=== PATIENT | female | born 1995 | race Caucasian/White ===

== ENCOUNTER 2018-03-19 05:57 | Inpatient (IN) | payer BC, OTHER ==
[2018-03-19 07:03] LABS: APPEARANCE,URINE TURBID; BILIRUBIN,URINE NEGATIVE (NEGATIVE); COLOR,URINE YELLOW; GLUCOSE, URINE NEGATIVE (NEGATIVE); KETONES,URINE NEGATIVE (NEGATIVE); LEUKOCYTE ESTERASE,URINE TRACE (NEGATIVE); NITRITE,URINE NEGATIVE (NEGATIVE); PROTEIN,URINE 100 mg/dL (NEGATIVE); URINE SPECIFIC GRAVITY 1.005; UROBILINOGEN,URINE NEGATIVE mg/dL (<2.0)
[2018-03-19 07:05] LABS: URINE AMPHETAMINES SCREEN NEGATIVE; URINE BARBITURATES SCREEN NEGATIVE; URINE BENZODIAZEPINES SCREEN NEGATIVE; URINE COCAINE SCREEN NEGATIVE; URINE MARIJUANA (THC) SCREEN NEGATIVE; URINE METHADONE SCREEN NEGATIVE; URINE PHENCYCLIDINE SCREEN NEGATIVE
--- NOTE | 2018-03-19 07:19 | Admission Physical ---
Datetime Report Generated by CPN: 03/19/2018 07:19 CURRENT ADMISSION Chief Complaint: Suspected Ruptured Membranes Indication for Induction: Not Applicable Admit Impression : Term, Intrauterine ; No Active Labor; Ruptured Membranes Admit Plan: Admit to Unit; Initiate Labor Protocol ALLERGIES Medication Allergies: No Medication Allergies: No Known Allergies (03/19/2018) Latex: No Latex Allergies Food Allergies: NKA Environmental Allergies: NKA OBSTETRICAL HISTORY EDC: 03/20/2018 00:00 : 2 Para: 0 Term: 0 : 0 SAB: 1 IAB: 0 Livin Cesareans: 0 Gestational Diabetes: No Rh Sensitization: No Incompetent Cervix: No PATRICIA: No Infertility: No Uterine Anomaly: No IUGR: No Hx Previous C/S: No Macrosomia: No Hx Loss/Stillborn: No PIH: No Hx : No Placenta Previa/Abruption: No Depression/PP Depression: No PTL/PROM: No Post Hemorrhage: No SEE RECORDS Alcohol: Yes Marijuana : Yes Cocaine: Yes Other Illicit Drugs: Yes Cigarettes: Never Smoker. [id number] PHYSICAL EXAM General: Normal HEENT: Normal Neurologic: Normal Thyroid: Normal Heart: Normal Lungs: Normal Breast: Normal Back: Normal Abdomen: Normal Genitourinary Exam: Normal Extremities: Normal DTRs: Normal Pelvic Type: Adequate Vital Signs: Reviewed; Within Normal Limits VAGINAL EXAM Dilatation: ft Effacement: 50 Station: -3 Contraction Comments: q 6 minutes MEMBRANES Pooling: Negative Ferning Results: Positive Membranes: Ruptured Amniotic Fluid Color: Clear FETUS A EGA: 39.6 Monitoring: External US; Internal Scalp Electrode FHR- Baseline: 120s Variability: Moderate 6-25bpm Accelerations: 15X15 Decelerations: None FHR Category: Category I Admit Comment: GBS Negative. Pt comfortable. PLANS FOR LABOR AND DELIVERY Labor and Delivery: None Pain Management: Epidural Feeding Preference: Breast Benefit of Breast Feed Discussed: Yes Circumcision: Yes INFORMED CONSENT Signature: with User ID: [email or web address]
[2018-03-19] MEDS ORDERED: OXYTOCIN 10 UNIT/ML VIAL ONE (08:07)
[2018-03-19] MEDS ORDERED: LIDOCAINE 1% INJ-PF (10 MG/ML) 30 ML SDV ONE (08:08)
[2018-03-19] MEDS ORDERED: MISOPROSTOL 0.2 MG TABLET ONE (08:08)
[2018-03-19] MEDS ORDERED: OXYTOCIN/NORMAL SALINE 20 UNIT/1,000 ML RTUINJ ONE (08:08)
[2018-03-19] MEDS ORDERED: NALBUPHINE HCL INJ 10 MG/1 ML AMPULE INJ ONE (11:04)
[2018-03-19] MEDS ORDERED: PROMETHAZINE HCL INJ 25 MG/1 ML VIAL IV ONE (11:04)
[2018-03-19] MEDS ORDERED: NALBUPHINE HCL INJ 10 MG/1 ML AMPULE ONE (11:07)
[2018-03-19] MEDS ORDERED: PROMETHAZINE HCL INJ 25 MG/1 ML VIAL ONE (11:07)
[2018-03-19] MEDS ORDERED: RINGERS SOLUTION,LACTATED 1,000 ML IV PRN (11:47)
[2018-03-19] MEDS ORDERED: RINGERS SOLUTION,LACTATED 300 ML IV ONE (11:47)
--- NOTE | 2018-03-19 11:58 | L&D Progress Notes ---
PROGRESS NOTES Datetime Report Generated by CPN: 03/19/2018 11:58 PROGRESS NOTE Impression: Normal Progression of Labor; Reassuring Heart Rate Procedures: Sterile Vag Exam Plan: Continue Present Management; Anticipate Vaginal Delivery Informed Consent Obtained: Vaginal Delivery Vital Signs : Reviewed; Within Normal Limits Comment: Pt s/p IV pain medication, very uncomfortable, c/o rectal pressure. VE small Ant Lip/ -1. Position changes encouaraged. Anticipate soon. Attending MD is Dr Alba VAGINAL EXAM Dilatation: anterior lip Dilatation: ft Effacement: 90 Effacement: 50 Station: -1 Station: -3 Contractions: q1-3 Contractions: q 6 minutes LAST VAGINAL EXAM-NURSING Dilitation: 9.5 Dilitation: FT Effacement: 90 Effacement: 60 Station: -1 Station: -3 MEMBRANES Pooling: Negative Ferning Results: Positive Membranes: Ruptured Amniotic Fluid Color: Clear FETUS A FHR - Baseline: 130 Monitoring: External US Variability: Moderate 6-25bpm Accelerations: 10X10 Decelerations: Variable FHR Category: Category II : 39.6 SIGNATURE SIGNATURE: [id number] SIGNATURE: [id number] Assignment: Steve Alba MD Signature: with User ID: [email or web address] : with User ID: [email or web address]
[2018-03-19 12:42] LABS: ABSOLUTE LYMPHOCYTES (AUTO) 1.9 10^3/uL (0.5-4.7); ABSOLUTE MONOCYTES (AUTO) 0.6 10^3/uL (0.1-1.4); BASOPHILS % (AUTO) 0.3 % (0-2); EOSINOPHILS % (AUTO) 0.1 % (0-6); HEMATOCRIT 35.6 % (36.0-47.0); HEMOGLOBIN 12.2 g/dL (12.0-15.5); LYMPHOCYTES % (AUTO) 14.8 % (13-45); MEAN CORPUSCULAR HEMOGLOBIN 31.4 pg (27.0-33.4); MEAN CORPUSCULAR HGB CONC 34.3 g/dL (32.0-36.0); MEAN CORPUSCULAR VOLUME 92 fl (80-97); MONOCYTES % (AUTO) 5.1 % (3-13); PLATELET COUNT 214 10^3/uL (150-450); RED BLOOD COUNT 3.89 10^6/uL (3.72-5.28); RED CELL DISTRIBUTION WIDTH 13.5 % (11.5-14.0); SEGMENTED NEUTROPHILS % (AUTO) 79.7 % (42-78); TOTAL CELLS COUNTED % (AUTO) 100 %; WHITE BLOOD COUNT 12.5 10^3/uL (4.0-10.5)
[2018-03-19] MEDS ORDERED: DIPH/PERTUSS(ACELL)/TETANUS VAC/PF 0.5 ML SYR (>=10YO) IM PRN (13:51)
[2018-03-19] MEDS ORDERED: ZOLPIDEM TARTRATE 5 MG TABLET PO PRN (13:51)
[2018-03-19] MEDS ORDERED: MEASLES,MUMPS&RUBELLA VACC/PF 0.5 ML VIAL SUBCUT PRN (13:51)
[2018-03-19] MEDS ORDERED: OXYTOCIN/NORMAL SALINE 20 UNIT/1,000 ML RTUINJ IV PRN (13:51)
[2018-03-19] MEDS ORDERED: BENZOCAINE/MENTHOL AEROSOL SPRAY 56 ML TOP PRN (13:51)
[2018-03-19] MEDS ORDERED: ACETAMINOPHEN WITH CODEINE #3 TABLET PO PRN (13:51)
[2018-03-19] MEDS ORDERED: DIBUCAINE 1% OINTMENT 28 GM TP PRN (13:51)
[2018-03-19] MEDS ORDERED: IBUPROFEN 800 MG TABLET ONE (14:28)
[2018-03-19] MEDS: FERROUS SULFATE 325 MG TABLET PO SCH (17:38)
[2018-03-19] MEDS: DOCUSATE SODIUM 100 MG CAPSULE PO SCH (17:38)
--- NOTE | 2018-03-19 17:39 | Delivery Summary ---
Del Sum A-C Datetime Report Generated by CPN: 03/19/2018 17:39 DELIVERY PERSONNEL DELIVERY PERSONNEL: [id number] Delivery Doctor:: Huma Rosenthal CNM Labor and Delivery Nurse:: Hiwot Bryant RN Nursery Nurse:: Samantha Scott RN [employer] Visiting Teacher/SUPERVISOR GRINDING: Radha Soliman CNA II MATERNAL INFORMATION Delivery Anesthesia: Local Medications After Delivery: Pitocin Bolus-Please Comment; Pitocin Drip 20 Units/1000ml NSS; Other-Please Comment Meds After Delivery Comment: CYTOTEC 200 MCG SL @ 1317 Maternal Complications: None Provider Comments: of viable baby boy, TATO. NC x 1, easily reduced. Baby placed on pts abdoman, crying and in stable condition. Cord Clamped and cut after one minute. Cord blood obtained. Placenta S/C/I, IV Pitocin infusing. Cytotec 200 mcg SL given. Hemostasis achieved. 2nd degree laceration repaired. Mother and baby stable and skin to skin, Pt plans to breastfeed. EBL [address] Alba is the attending MD LABOR SUMMARY EDC: 03/20/2018 00:00 No. Babies in Womb: 1 Attempted: No Labor Anesthesia: IV Sedation LABOR INFORMATION Reason for Induction: Not Applicable Onset of Labor: 03/19/2018 09:30 Complete Dilatation: 03/19/2018 11:57 Oxytocin: Augmentation Group B Beta Strep: Negative Antibiotics # of Doses: 0 Steroids Given: None Reason Steroids Not Administered: Not Applicable MEMBRANES Membranes Rupture Method: Spontaneous Rupture of Membranes: 03/19/2018 02:15 Length of Rupture (hr): 10.97 Amniotic Fluid Color: Clear Amniotic Fluid Amount: Moderate Amniotic Fluid Odor: None STAGES OF LABOR Stage 1 hr: 2 Stage 1 min: 27 Stage 2 hr: 1 Stage 2 min: 16 Stage 3 hr: 0 Stage 3 min: 4 Total Time in Labor hr: 3 Total Time in Labor min: 47 VAGINAL DELIVERY Episiotomy: None Laceration #1: Perineal Laceration Extension #1: Second Degree Laceration Repair: Yes Laceration Repair Note: 2nd degree laceration repaired w/ 3.0 Vicryl using local lidocaine injection Sponge Count Correct: N/A Sharps Count Correct: N/A BABY A INFORMATION Delivery Date/Time: 03/19/2018 13:13 Method of Delivery: Vaginal Born in Route : No : N/A Forceps: N/A Vacuum Extraction: N/A Shoulder Dystocia : No PRESENTATION/POSITION BABY A Presentation: Cephalic Cephalic Presentation: Vertex Vertex Position: Left Occipital Anterior Breech Presentation: N/A PLACENTA INFORMATION BABY A Placenta Delivery Time : 03/19/2018 13:17 Placenta Method of Delivery: Spontaneous Placenta Status: Delivered SCORES BABY A Heart Rate 1 min: >100 bpm Resp Effort 1 min: Good Cry Reflex Irritability 1 min: Cough or Sneeze or Pulls Away Muscle Tone 1 min: Active Motion Color 1 min: Blue/Pale Resuscitation Effort 1 min: Tactile Stimulation SCORE 1 MIN: 8 Heart Rate 5 min: >100 bpm Resp Effort 5 min: Good Cry Reflex Irritability 5 min: Cough or Sneeze or Pulls Away Muscle Tone 5 min: Active Motion Color 5 min: Body [place], Extremities Blue Resuscitation Effort 5 min: Tactile Stimulation SCORE 5 MIN: 9 INFORMATION BABY A Gestational Age at Delivery: 39.6 Gestational Status: Full Term- 39- 40.6 Weeks Outcome : Liveborn Infant Condition : Stable Infant Sex: Male IDENTIFICATION BABY A Infant Verification Date/Time: 03/19/2018 14:38 ID Band Number: [id number] Mother's Name Verified: Yes Infant RN Verifying Infant: OSBALDO JOHNSONTANIYA, [place] Additional Verifying Personnel: Frank CATALAN RN WEIGHT/LENGTH BABY A Birthweight (gm): 3512 Infant Weight (lb): 7 Weight (oz): 12 Infant Length (in): 21.00 Infant Length (cm): 53.34 CORD INFORMATION BABY A No. Cord Vessels: 3 Nuchal Cord : Around Neck x1, Loose Cord Blood Taken: Yes-For Storage (Mom's Blood type +) (Annotations: Data stored by [facility] on behalf of user) Suction: None ASSESSMENT BABY A Infant Complications: Multiple Variable Decels Physical Findings at Delivery: Caput Succedaneum; Molding of the Head Respirations: Appears Normal Skin to Skin: Yes Sack Lifter/ALS Called : No Care By: Clara SCOTT RN/ OSBALDO BRYANT RN Transferred To: Remains with Mother BABY B INFORMATION : N/A SIGNATURES Assignment: Steve Alba MD Signature: with User ID: [email or web address] : with User ID: [email or web address]
[2018-03-19] MEDS: IBUPROFEN 800 MG TABLET PO SCH ×2 (17:54→22:25)
[2018-03-20] MEDS: IBUPROFEN 800 MG TABLET PO SCH ×3 (05:44→22:34)
[2018-03-20 08:38] LABS: HEMATOCRIT 27.6 % (36.0-47.0); MEAN CORPUSCULAR HEMOGLOBIN 31.5 pg (27.0-33.4); MEAN CORPUSCULAR HGB CONC 33.9 g/dL (32.0-36.0); MEAN CORPUSCULAR VOLUME 93 fl (80-97); PLATELET COUNT 174 10^3/uL (150-450); RED BLOOD COUNT 2.97 10^6/uL (3.72-5.28); WHITE BLOOD COUNT 11.4 10^3/uL (4.0-10.5)
[2018-03-20 08:39] LABS: HEMOGLOBIN 9.4 g/dL (12.0-15.5)
--- NOTE | 2018-03-20 08:54 | PDOC PROGRESS REPORT ---
Subjective-OB Progress Note for:: 03/20/18 Subjective: Doing well, no c/o, voiding Physical Exam (OB) Vital Signs: Temp Pulse Resp BP Pulse Ox 97.5 F 75 16 121/62 96 03/20/18 07:49 03/20/18 07:49 03/20/18 07:49 03/20/18 07:49 03/20/18 07:49 Intake & Output 03/19/18 03/20/18 03/21/18 06:59 06:59 06:59 Weight 79.435 kg - PIH/Pre-Eclampsia Headache: Absent Epigastric Pain: No Visual Changes: No - Lochia Lochia Amount: Small 10-25 ml Lochia Color: Rubra/Red - Abdomen Description: Soft, Round Hernia Present: No Fundal Description: Firm, Midline Fundal Height: u/u - u/2 Objective-Diagnostic Laboratory: 03/20/18 07:45 03/19/18 03/19/18 03/20/18 12:29 12:29 07:45 WBC 12.5 H 11.4 H RBC 3.89 2.97 L Hgb 12.2 9.4 L D Hct 35.6 L 27.6 L MCV 92 93 MCH 31.4 31.5 MCHC 34.3 33.9 RDW 13.5 14.0 Plt Count 214 174 Seg Neutrophils % 79.7 H Lymphocytes % 14.8 Monocytes % 5.1 Eosinophils % 0.1 Basophils % 0.3 Absolute Neutrophils 10.0 H Absolute Lymphocytes 1.9 Absolute Monocytes 0.6 Absolute Eosinophils 0.0 Absolute Basophils 0.0 Blood Type A POSITIVE Antibody Screen NEGATIVE Assessment and Plan(PN) - Assessment and Plan (1) Normal vaginal delivery Is this a current diagnosis for this admission?: Yes (2) Anemia Qualifiers: Anemia type: iron deficiency Is this a current diagnosis for this admission?: Yes - Time Spent with Patient Time with patient: Less than 15 minutes Medications reviewed and adjusted accordingly: Yes - Disposition Anticipated Discharge: Home Within: within 24 hours
[2018-03-20] MEDS: PRENATAL VITAMIN W DHA CAPSULE PO SCH (09:43)
[2018-03-20] MEDS: FERROUS SULFATE 325 MG TABLET PO SCH ×2 (09:43→17:18)
[2018-03-20] MEDS: DOCUSATE SODIUM 100 MG CAPSULE PO SCH ×2 (09:43→17:18)
[2018-03-20] MEDS: SENNOSIDES/DOCUSATE 8.6-50 MG 1 EACH TABLET PO SCH (09:43)
[2018-03-21] MEDS: IBUPROFEN 800 MG TABLET PO SCH (05:14)
[2018-03-21 08:21] VITALS: BP 121/74
--- NOTE | 2018-03-21 09:41 | PDOC DISCHARGE SUMMARY ---
Final Diagnosis Discharge Date: 03/21/18 - PP Dy #2, doing well, no compaints, , A+, rubella immune Discharge Data - Discharge Medication Prescriptions: Ferrous Sulfate [Feosol 325 mg Tablet] 325 mg PO DAILY #30 tablet Ibuprofen [Motrin 800 mg Tablet] 800 mg PO Q8 #60 tablet Home Medications: Vit,Calc76/Iron/Folic [Pnv 29-1 Tablet] 1 each PO DAILY 03/19/18 Ferrous Sulfate [Feosol 325 mg Tablet] 325 mg PO DAILY #30 tablet 03/21/18 Ibuprofen [Motrin 800 mg Tablet] 800 mg PO Q8 #60 tablet 03/21/18 Reason(s) for Admission: Onset of Labor Intrapartum Procedure(s): Spontaneous Vaginal Delivery Complication(s): Laceration-Vaginal Laceration-Degree: 2nd - Diagnosis Test Laboratory: Temp Pulse Resp BP Pulse Ox 98.0 F 64 18 121/74 99 03/21/18 08:21 03/21/18 08:21 03/21/18 08:21 03/21/18 08:21 03/21/18 08:21 03/19/18 03/19/18 03/20/18 06:18 12:29 07:45 RBC 3.89 2.97 L Hgb 12.2 9.4 L D Hct 35.6 L 27.6 L Urine Opiates Screen NEGATIVE - Discharge information/Instructions Discharge Activity: Activity As Tolerated, No Lifting Over 10 Pounds, Pelvic Rest Discharge Diet: As Tolerated, Regular Disposition: HOME, SELF-CARE Follow up with: [facility] in: 4, Weeks
[2018-03-21] MEDS: PRENATAL VITAMIN W DHA CAPSULE PO SCH (10:09)
[2018-03-21] MEDS: FERROUS SULFATE 325 MG TABLET PO SCH (10:09)
[2018-03-21] MEDS: DOCUSATE SODIUM 100 MG CAPSULE PO SCH (10:09)
[2018-03-21] MEDS: SENNOSIDES/DOCUSATE 8.6-50 MG 1 EACH TABLET PO SCH (10:09)
== END 2018-03-21 13:15 | disposition home or self-care (01) | DRG 807 ==
LOC: LC 05:57 → LR 06:59 → 2S 16:25
PROVIDERS: ADMIT Obstetrics & Gynecology Gynecology; ATTEND Obstetrics & Gynecology Gynecology
PROC: 10E0XZZ Delivery of Products of Conception, External Approach (ICD-10-PCS; principal; 2018-03-19)
PROC: 0KQM0ZZ Repair Perineum Muscle, Open Approach (ICD-10-PCS; 2018-03-19)
DX: O69.81X0 Labor and delivery complicated by cord around neck, without compression, not applicable or unspecified (principal); Z37.0 Single live birth; O70.1 Second degree perineal laceration during delivery; O76 Abnormality in fetal heart rate and rhythm complicating labor and delivery; O99.02 Anemia complicating childbirth; D50.9 Iron deficiency anemia, unspecified; Z3A.39 39 weeks gestation of pregnancy
CPT/HCPCS: 36415; 80307; 81005; 84112; 85025; 85027; 86592; 86850; 86900; 86901; J2300; J2550; J2590; J3490